=== PATIENT | male | born 1990 | race African-American/Black ===

== ENCOUNTER 2021-09-14 23:20 | Emergency (ER) | payer MEDICAID, OTHER ==
[2021-09-15] MEDS ORDERED: Ondansetron ODT 4 MG TAB ONE (00:10)
== END 2021-09-15 00:12 | disposition home or self-care (01) ==
LOC: CSHERS 23:20
DX: R11.10 Vomiting, unspecified (principal); F17.210 Nicotine dependence, cigarettes, uncomplicated
CPT/HCPCS: 99283; Q0162

== ENCOUNTER 2021-12-26 11:32 | Emergency (ER) | payer MEDICAID, OTHER ==
[2021-12-26] MEDS ORDERED: Ketorolac Tromethamine 30 MG/ML VIAL ONE (12:43)
[2021-12-26] MEDS ORDERED: Acetaminophen 500 MG TAB ONE (12:43)
[2021-12-26 14:06] LABS: Bilirubin Neg (Negative); Blood, Urine 250 (Negative); Clarity Cloudy (Clear); Glucose, Urine (Dipstick) Normal (Negative); Ketone, Urine Negative (Negative); Leukocyte 500 (Negative); Nitrite Negative (Negative); Protein, Urine (Dipstick) 30 mg/dl (Neg-Trace); Specific Gravity, Urine 1.015 (1.002-1.036)
[2021-12-26 14:12] LABS: Bacteria/HPF Rare-Few HPF (None Seen); Squamous Epithelial 0-3 HPF (0-3); WBC/HPF Greater Than 50 HPF (0-3)
[2021-12-26] MEDS ORDERED: Azithromycin 250 MG TAB ONE (14:37)
[2021-12-26] MEDS ORDERED: cefTRIAXone\\ROCEPHIN 500 MG VIAL ONE (14:37)
[2021-12-26] MEDS ORDERED: Sterile Water 10 ML ONE (14:38)
[2021-12-27 12:03] LABS: Chlam.trachomatis by PCR,Urine Not Detected (NotDetected)
== END 2021-12-26 14:41 | disposition home or self-care (01) ==
LOC: CSHERS 11:32
DX: N34.2 Other urethritis (principal); F17.210 Nicotine dependence, cigarettes, uncomplicated
CPT/HCPCS: 81003; 81015; 87086; 87491; 87591; 96372; 99283; J0696; J1885

== ENCOUNTER 2023-12-16 15:48 | Emergency (ER) | payer MEDICAID, OTHER, SELFPAY ==
[2023-12-16] MEDS ORDERED: Ketorolac Tromethamine 30 MG (1 mL) VIAL ONE (16:37)
[2023-12-16] MEDS ORDERED: Diazepam 5 MG TAB ONE (17:11)
== END 2023-12-16 17:11 | disposition home or self-care (01) ==
LOC: CSHERS 15:48
DX: M54.41 Lumbago with sciatica, right side (principal); F17.210 Nicotine dependence, cigarettes, uncomplicated
CPT/HCPCS: 96372; 99283; J1885